=== PATIENT | male | born 1975 | race Native Hawaiian/Other Pacific Islander ===

== ENCOUNTER 2020-09-18 10:53 | Emergency (ER) | payer BC ==
[~2020-09-18] VITALS: Ht 170.2 cm; Wt 77.1 kg
[2020-09-18 10:58] VITALS: BP 192/105; TEMP 97
== END 2020-09-18 12:27 | disposition home or self-care (01) ==
LOC: ED 10:53
DX: R07.0 Pain in throat (principal); R11.2 Nausea with vomiting, unspecified
CPT/HCPCS: 96372; 99283; J1885; J2405

== ENCOUNTER 2020-09-23 03:41 | Emergency (ER) | payer BC ==
[~2020-09-23] VITALS: Ht 170.2 cm; Wt 77.1 kg
[2020-09-23 04:55] VITALS: BP 146/83; TEMP 97.5
== END 2020-09-23 04:57 | disposition home or self-care (01) ==
LOC: ED 03:44
DX: R09.89 Other specified symptoms and signs involving the circulatory and respiratory systems (principal); Z20.828 Contact with and (suspected) exposure to other viral communicable diseases
CPT/HCPCS: 87502; 87635; 87651; 96372; 99283; J1100; J1885; J2765; U0003